=== PATIENT | male | born 1945 | race Two or more races ===

== ENCOUNTER 2017-09-26 09:56 | Day surgery (SDC) | payer OTHER ==
[~2017-09-26] VITALS: Ht 188 cm; Wt 91.6 kg
[2017-09-26] VITALS (8 sets, daily range): BP systolic 122–156; BP diastolic 69–88
[~2017-09-26 09:56] MED LIST: BSS 15ml BTL ONE; BSS 500ml btl ONE; Bupivacaine 0.75% 30ml vial INJ ONE; CALCIUM500 M3 PO; DAILY MULTIPLE1 EACH ORAL; Dexamethasone 4mg/ml vial ONE; Dyna-Hex 2% Top Sol 2oz TOPIC ONE; EPINEPHrine 1mg/1ml Amp ONE; FLAX SEED OIL1000 MG PO; Goniosol 2.5% Opth Soln - 15ml ONE; Kenalog-10 5ml Inj ONE; Kenalog-40 1ml Vial ONE; Lidocaine 2% MPF 5ml Vial INJ ONE; MAGNESIUM100 MG PO; Maxitrol Opth Oint 3.5gm ONE; Povidone-Iodine 5% opth solution ONE; Pred Forte 1% Opth Susp 1ml ONE; TUMERIC; Tetracaine 0.5% Opth 4ml Soln ONE; VIAGRA25 MG ORAL; VITAMIN A10000 UNIT ORAL; VITAMIN B COMP1 EAC2 ORAL; VITAMIN C250 MG ORAL; VITAMIN E1000 UNI5 PO; VITAMIN E400 UNI5 PO; Vancomycin 1gm inj IVPB ONE; ZINC30 MG ORAL
[2017-09-26] MEDS ORDERED: Phenylephrine 2.5% Op 2ml Soln ONE (09:59)
[2017-09-26] MEDS ORDERED: Cyclopentolate 1% Opth Sol 2ml ONE (09:59)
[2017-09-26] MEDS ORDERED: Indocyanine Green 25mg Inj INJ ONE (10:00)
[2017-09-26] MEDS: Phenylephrine 2.5% Op 2ml Soln LEFT EYE SCH ×3 (10:29→10:52)
[2017-09-26] MEDS: Cyclopentolate 1% Opth Sol 2ml LEFT EYE SCH ×3 (10:29→10:52)
[2017-09-26] MEDS ORDERED: Sterile Water Irrig 1000ml IRRIG ONE (11:00)
[2017-09-26] MEDS ORDERED: LR 1000ml ONE (11:00)
--- NOTE | 2017-09-26 11:07 | Pre-Procedure Note/Attestation ---
Pre-Procedure Note/Attestation Complete Prior to Procedure Planned Procedure: left Procedure Narrative: ppv/iol removal/ ac iol implantation os Indications for Procedure Pre-Operative Diagnosis: posterior dislocated iol os Attestation I attest that I discussed the nature of the procedure; its benefits; risks and complications; and alternatives (and the risks and benefits of such alternatives ), prior to the procedure, with the patient (or the patient's legal service liaison representative). I attest that, if there was a reasonable possibility of needing a blood transfusion, the patient (or the patient's legal service liaison representative) was given the [facility] standardized written summary, pursuant to the [place] Blood Safety Act ([place] Health and Safety Code # 1645, as amended). I attest that I re-evaluated the patient just prior to the surgery and that there has been no change in the patient's H&P, except as documented below: LINDEN CRAIG M.D. Sep 26, 2017 11:07
[2017-09-26] MEDS ORDERED: Midazolam 2mg/2ml Inj ONE (11:15)
[2017-09-26] MEDS ORDERED: fentaNYL 100 mcg/2 mL IV ONE (11:15)
[2017-09-26] MEDS ORDERED: Propofol 200mg/20ml IV ONE (11:16)
[2017-09-26] MEDS ORDERED: Lidocaine 1% MPF 10mg/ml 5ml ONE (11:16)
[2017-09-26] MEDS ORDERED: Sodium Hyaluronate 10 mg/ml 0.85ml ONE (11:28)
[2017-09-26] MEDS ORDERED: LR 1000ml 1,000 ML IVLG SCH (11:54)
--- NOTE | 2017-09-26 11:54 | Anethesia Preoperative Eval ---
Anesthesia Pre-op PMH/ROS General Date of Evaluation: Sep 26, 2017 Time of Evaluation: 11:10 Anesthesiologist: ASA Score: ASA 2 Mallampati Score Class I : Soft palate, uvula, fauces, pillars visible Class II: Soft palate, uvula, fauces visible Class III: Soft palate, base of uvula visible Class IV: Only hard plate visible Mallampati Classification: Class II Surgeon: rashmi Diagnosis: detached lens left eye Surgical Procedure: vitrectomy, lensectomy, removal and replacement IOL left eye Anesthesia History: none Allergies: Coded Allergies: IODINATED CONTRAST MEDIA - IV DYE (Verified Allergy, Severe, 10/04/12) WAS TOLD SHOULD NOT BE DONE AGAIN AFTER FINDING KIDNEY TUMOR 10 YEARS AGO Past Medical History Cardiovascular: Reports: other - elevated cholesterol; Denies: HTN, CAD, HI, valve dz, arrhythmia Pulmonary: Denies: asthma, COPD, DAVID, other Gastrointestinal/Genitourinary: Denies: GERD, CRI, ESRD, other Neurologic/Psychiatric: Denies: dementia, CVA, depression/anxiety, TIA, other Endocrine: Denies: DM, hypothyroidism, steroids, other HEENT: Reports: cataract (L); Denies: cataract (R), glaucoma, EKUK (L), EKUK (R), other Hematology/Immune: Denies: anemia, DVT, bleeding disorder, other Musculoskeletal/Integumentary: Denies: OA, RA, DJD, DDD, edema, other PSxH Narrative: left nephrectomy 2002 ( h/o left kidney ca), double hernia repair Anesthesia Pre-op Phys. Exam Physician Exam Last Vital Signs Date Time Temp Pulse Resp B/P (MAP) Pulse Ox O2 Delivery O2 Flow Rate FiO2 09/26/17 10:54 97.3 50 20 122/79 (93) 99 97.3 09/26/17 10:30 Room Air Constitutional: NAD Cardiovascular: RRR Respiratory: CTA Gastrointestinal: S/NT/ND Airway Exam Mallampati Score: Class II MO: full ROM: full Teeth: intact Dentures: no upper, no lower Anesthesia Pre-op A/P Risk Assessment & Plan Assessment: asa 2 Plan: MAC Status Change Before Surgery: No Pre-Antibiotics Drug: none Bibi Calderon M.D. Sep 26, 2017 11:54
--- NOTE | 2017-09-26 11:59 | Immediate Post-Op Evaluation ---
Immediate Post-Op Evalulation Immediate Post-Op Evalulation Procedure: vitrectomy, lensectomy, removal and replacement of IOL left eye Date of Evaluation: Sep 26, 2017 Time of Evaluation: 13:58 IV Fluids: 400ml Blood Products: 0 Estimated Blood Loss: 0 Urinary Output: 0 Blood Pressure Systolic: 143 Blood Pressure Diastolic: 48 Pulse Rate: 44 Respiratory Rate: 16 O2 Sat by Pulse Oximetry: 99 Temperature (Fahrenheit): 97 Pain Score (1-10): 0 Nausea: No Vomiting: No Complications none Patient Status: awake, patent, none Hydration Status: adequate Drug: none Bibi Calderon M.D. Sep 26, 2017 11:59
[2017-09-26] MEDS ORDERED: DiphenhydrAMINE 50mg/ml Inj IVP PRN (12:00)
[2017-09-26] MEDS ORDERED: fentaNYL 100 mcg/2 mL IV PRN (12:00)
[2017-09-26] MEDS ORDERED: BSS 500ml btl ONE (12:08)
[2017-09-26] MEDS ORDERED: EPINEPHrine 1mg/1ml Amp ONE (12:08)
[2017-09-26] MEDS ORDERED: Acetylcholine Injection (OR) ONE (12:44)
[2017-09-26] MEDS ORDERED: Carbachol 0.01% Op Soln 1.5ml vial ONE (13:23)
--- NOTE | 2017-09-26 14:03 | Operative Note - PDOC ---
Operative Note Operative Note Date of Operation/Procedure: Sep 26, 2017 Chief Complaint: dec va os Pre-op Diagnosis: posterior dislocated cataract os Procedure: ppv/ppl/aciol os Post-op Diagnosis: same as pre-op Operative Findings: consistent w/pre-op dx studies Surgeon: rashmi Senior Software Qa Engineer: maren Anesthesia: MAC Condition: stable Estimated Blood Loss: none Drains: none Implant(s) used?: Yes Indications for Procedure traumatic dislocation of cataract os. severe va loss os LINDEN CRAIG M.D. Sep 26, 2017 14:03
[2017-09-26] MEDS ORDERED: Norco 5mg/325mg tab ORAL PRN (14:15)
--- NOTE | 2017-09-26 15:22 | 48 Hour Post Anesthesia Eval ---
Post Anesthesia Evaluation Procedure: vitrectomy, lensectomy, removal and replacement of IOL left eye Date of Evaluation: Sep 26, 2017 Time of Evaluation: 14:30 Blood Pressure Systolic: 156 0: 69 Pulse Rate: 46 Respiratory Rate: 18 Temperature (Fahrenheit): 98.0 O2 Sat by Pulse Oximetry: 97 Airway: patent Nausea: No Vomiting: No Pain Intensity: 0 Hydration Status: adequate Mental Status/LOC: patient returned to baseline Post-Anesthesia Complications: none Follow-up care needed: ready to discharge Bibi Calderon M.D. Sep 26, 2017 15:22
--- NOTE | 2017-09-27 17:15 | Operative Note - Dictated ---
DATE OF OPERATION: 09/26/2017 PREOPERATIVE DIAGNOSES: 1. Dislocated cataract, left eye. 2. Trauma, left eye. 3. Aphakia, left eye. POSTOPERATIVE DIAGNOSES: 1. Dislocated cataract, left eye. 2. Trauma, left eye. 3. Aphakia, left eye. PROCEDURES: Pars plana vitrectomy, pars plana lensectomy with phaco-fragmentation, ACIOL, left eye. PRIMARY SURGEON: Cody Hay M.D. CANNERY WORKER: None. ANESTHESIA: Monitored anesthesia care with retrobulbar injection. ESTIMATED BLOOD LOSS: None. COMPLICATIONS: None. INDICATIONS: The patient had suffered a trauma in the left eye, which caused the cataract to dislocate into the posterior segment. He had severe vision loss in this eye. After benefits, alternatives, and risks were discussed, an informed consent was signed. IMPLANTS: The patient had a MTA4U0 lens by [employer] with power of 17.5 diopters, expiration November 2017, serial number [id number] implanted into the left eye. DESCRIPTION OF PROCEDURE: The patient was brought to the operating theater and identified. The left eye then received a retrobulbar block using the usual mixture of Marcaine and lidocaine under intravenous sedation with a retrobulbar needle. The left eye was prepped and draped in the usual sterile fashion with a lid speculum in placed and surgical pause was repeated. Under the operating microscope, a 23-gauge valved trocar/cannula was inserted in the inferotemporal quadrant at a distance of 3.5 mm posterior to the limbus using conjunctival displacement in an oblique incision pattern. The infusion line was attached and observed and then turned on. The superotemporal and superonasal cannulae were placed in a similar fashion. A vitrectomy cutter was placed into the eye and anterior vitrectomy was performed. Careful attention was placed towards removing the vitreous from the pupillary plane and anterior chamber. Next, using the Resight lens for visualization, the light pipe and vitrectomy cutter were placed into the eye and the core vitrectomy was performed. At this point, the lens could be seen sitting on the . Peripheral vitrectomy was performed very carefully. Next, I removed the superotemporal cannula, opened the conjunctiva with Soniya scissors, enlarged with sclerotomy with a 20-gauge MVR blade. I introduced a phaco fragmatome. I then proceeded with phacofragmentation of the lens in its entirety. Additional vitrectomy was then performed afterwards to remove any loose fragments or opacities from the posterior segment. Next, attention was placed towards the ACIOL. I measured a white to white distance of 11.75 mm. I, therefore, chose the MTA4U0 lens for an Bradley. I used a #57 blade to create a 5.5 mm half thickness sterile incision superiorly at the distance 1 mm posterior to the limbus. I then used a crescent blade to tunnel and to clear cornea. I then created a paracentesis in the supranasal clear cornea. I injected Miochol to constrict the pupil, but it only constricted partially. I then placed Healon in the anterior chamber. I then used the keratome to enlarge my scleral tunnel. I placed the lens wide into the eye and then I inserted the lens using the Nava forceps. I positioned the haptics to be away from the wound. Next, with 10-0 nylon suture, I placed three interrupted sutures to close the wound. I then used the vitrectomy cutter to create a peripheral iridotomy inferiorly. Next, using , I removed the Healon from the anterior chamber. I also performed some additional anterior vitrectomy to remove any loose fragments. Next, I removed all sclerotomies and closed all of them with 7-0 Vicryl except for the infusion sclerotomy, which did not need to be closed. I then used 6-0 plain gut sutures to close the conjunctiva and I did this in a buried knot fashion. Subconjunctival vancomycin and dexamethasone were then injected infranasal. The eye was palpated and had a pressure of approximately 10. This was ideal. The lid speculum and drape were removed, periocular area cleaned and Maxitrol ointment was placed on the ocular surface. A patch and shield were fixed with tape. The patient was then taken to the recovery area in good spirits and in no pain. There were no complications during the surgery and I performed the entire surgery. Cody Hay M.D. DR: PETER JOB#: [id number] CC:
== END 2017-09-26 14:50 | disposition home or self-care (01) ==
LOC: SUR 09:56
DX: H27.112 Subluxation of lens, left eye (principal); N18.3 Chronic kidney disease, stage 3 (moderate); N25.81 Secondary hyperparathyroidism of renal origin; D69.2 Other nonthrombocytopenic purpura; E78.00 Pure hypercholesterolemia, unspecified; E29.1 Testicular hypofunction; Z85.528 Personal history of other malignant neoplasm of kidney; Z85.46 Personal history of malignant neoplasm of prostate; Z85.828 Personal history of other malignant neoplasm of skin; Z90.5 Acquired absence of kidney; Z91.041 Radiographic dye allergy status
CPT/HCPCS: 66984; 67036; J0171; J1100; J2250; J2704; J3010; J3370; J3470; J3490; J7120; V2632; 94003; 94150